=== PATIENT | male | born 1990 ===

== ENCOUNTER 2025-04-15 13:30 | Outpatient (REF) | payer SELFPAY ==
[2025-04-15 19:46] LABS: TSH 1.13 uIU/mL (0.36-3.74)
[2025-04-16 09:57] LABS: Calculated LDL 126 mg/dL (<100); Cholesterol 195 mg/dL (<200); HDL Cholesterol 55 mg/dL (>or=40); Triglyceride 71 mg/dL (<150)
== END 2025-04-15 13:31 | disposition home or self-care (01) ==
LOC: NCHCN 13:30
PROVIDERS: Visit Provider Internal Medicine
DX: F41.9 Anxiety disorder, unspecified (principal)
CPT/HCPCS: 80061; 84443